=== PATIENT | female | born 1985 | race Hispanic/Latino ===

== ENCOUNTER 2018-07-26 16:38 | Emergency (ER) | payer OTHER ==
[2018-07-26] MEDS ORDERED: NACL 0.9% 1000 ML 1,000 ML IV ONE (16:56)
--- NOTE | 2018-07-26 17:04 | Emergency Department Report ---
HPI - General Chief Complaint: Overdose Time Seen by Provider: 07/26/18 16:43 - HPI HPI: 33-year-old female presents to the emergency Department via PD with what appears to be an overdose of methamphetamines. The patient readily admits that she put the last of her meth in her rectum last night to try and get high faster and with more intensity. Patient says that she was later kicked out of her motel and both her cell phones were . She says that she tried to go through a strip mall to the store to store asking if she could utilize there power outlets to charge her phone but no one would let her. She wanted to contact the police and she says that she did so by walking around in the street around busy traffic. She appears to be here as an arrest citation for a intoxicated pedestrian. The patient is awake and alert and has no other physical complaints at this time. ED Review of Systems ROS: Stated complaint: AMS Other details as noted in HPI Comment: All other systems reviewed and negative Constitutional: denies: chills, fever Eyes: denies: eye pain, vision change ENT: denies: ear pain, throat pain Respiratory: denies: cough, shortness of breath Cardiovascular: denies: chest pain, palpitations Gastrointestinal: denies: abdominal pain, vomiting Genitourinary: denies: dysuria, discharge Musculoskeletal: denies: back pain, arthralgia Skin: denies: rash, lesions Neurological: denies: headache, weakness Physical Exam - Physical Exam Physical Exam: GENERAL: The patient is well-developed well-nourished. HEENT: Normocephalic. Atraumatic. Patient has moist mucous membranes. EYES: Extraocular motions are intact. Pupils are equal and reactive to light bilaterally. NECK: Supple. Trachea is midline. CHEST/LUNGS: Clear to auscultation. There is no respiratory distress noted. HEART/CARDIOVASCULAR: Regular. There is mild tachycardia. There is no obvious murmur. ABDOMEN: Abdomen is soft, nontender. Patient has normal bowel sounds. There is no abdominal distention. SKIN: Skin is warm and dry. NEURO: The patient is awake, alert, and oriented. The patient is cooperative. The patient has no focal neurologic deficits. The patient has normal speech. MUSCULOSKELETAL: There is no tenderness or deformity. There is no limitation range of motion. There is no evidence of acute injury. PSYCH: Patient cannot stay still but otherwise acting appropriately. ED Medical Decision Making - Lab Data Result diagrams: 07/26/18 Unknown 07/26/18 Unknown - EKG Data -: EKG Interpreted by Me EKG shows normal: sinus rhythm, axis, intervals, QRS complexes (low-voltage), ST-T waves Rate: normal - EKG Data When compared to previous EKG there are: previous EKG unavailable Interpretation: normal EKG - Medical Decision Making The patient presents via PD after she was apparently walking around a high traffic area flagging down some cars. The patient admits to methamphetamine abuse starting last night which she inserted some into rectum. It has been many hours since the patient last used the illicit drug. She still is unable to stay still and is moving around on the gurney, but otherwise she is awake, oriented, cognitive and appropriate. Patient's labs have been mostly unremarkable. We do not have a urinalysis but she hardly admits to methamphetamine use and further urine drug screen will not change my treatment plan or disposition. She denies any dysuria. The rest of her labs have been unremarkable. Vital signs stable throughout her ED course. She was given some IV fluid resuscitation. The patient slept for a few hours in the emergency department and now appears sober and improved. She was seen ambulatory in the emergency department and both appears and feels stable. We discussed staying away from any further illicit drug use. She will be discharged with referrals for primary care. She will return the ER with any worsening of her symptoms or any acute distress. The patient was seen by the psychiatric ceramic chemist, Cristina, secondary to the patient's history of depression and the fact that she was walking around this busy traffic area. However the patient denies any suicidal or homicidal ideations and does not appear to meet criteria to be mediated 1013 or require inpatient psychiatric treatment. - Differential Diagnosis meth use/abuse, schizophrenia, depression, bipolar disorder Critical Care Time: No Critical care attestation.: If time is entered above; I have spent that time in minutes in the direct care of this critically ill patient, excluding procedure time. ED Disposition Clinical Impression: Methamphetamine abuse Disposition: DC-01 TO HOME OR SELFCARE Is pt being admited?: No Condition: Stable Instructions: Methamphetamine Abuse (ED) Additional Instructions: Please follow up with a primary care physician in the next few days. Return to the emergency Department with any worsening of your symptoms or any acute distress. Please try and stay away from any further illicit drug use. Referrals: [facility] [Other] - 2-3 Days Time of Disposition: 01:03
[2018-07-26 17:14] LABS: Basophils # (Auto) 0.1 K/mm3 (0.0-0.1); Basophils % (Auto) 0.9 % (0.0-1.8); Eosinophils # (Auto) 0.1 K/mm3 (0.0-0.4); Eosinophils % (Auto) 0.9 % (0.0-4.3); Hematocrit 36.8 % (30.3-42.9); Hemoglobin 12.3 gm/dl (10.1-14.3); Lymphocytes # (Auto) 1.1 K/mm3 (1.2-5.4); Mean Corpuscular HGB Conc 34 % (30-34); Mean Corpuscular Volume 87 fl (79-97); Monocytes % (Auto) 13.4 % (0.0-7.3); Platelet Count 256 K/mm3 (140-440); Red Blood Count 4.23 M/mm3 (3.65-5.03); Red Cell Distribution Width 12.7 % (13.2-15.2)
[2018-07-26 17:30] LABS: Alanine Aminotransferase 31 units/L (7-56); Albumin 4.2 g/dL (3.9-5); BUN/Creatinine Ratio 11; Blood Urea Nitrogen 9 mg/dL (7-17); Calcium 8.9 mg/dL (8.4-10.2); Hemolysis Index 13
[2018-07-27] MEDS ORDERED: IBUPROFEN PO ONE ×2 (00:10→05:22)
[2018-07-27 05:28] VITALS: BP 121/64
== END 2018-07-27 02:00 | disposition home or self-care (01) ==
LOC: ED 16:38
DX: F15.10 Other stimulant abuse, uncomplicated (principal)
CPT/HCPCS: 36415; 80053; 84703; 85025; 93005; 93010; 99284; G0480; J7030; 80320